=== PATIENT | male | born 1970 | race Caucasian/White ===

== ENCOUNTER 2021-06-16 11:50 | Day surgery (SDC) | payer OTHER ==
[~2021-06-16 11:50] MED LIST: LACTATED RINGERS 1,000 ML IV SCH
[2021-06-16 12:16] VITALS: TEMP 97.8
--- NOTE | 2021-06-16 12:47 | P.GSHP ---
History of Present Illness H&P Date: 06/16/21 Chief Complaint: Screening colonoscopy This is a 50-year-old male presents today for screening colonoscopy. Patient denies a significant GI complaints. He states he may have some hemorrhoids. Past Medical History Past Medical History: Osteoarthritis (OA) History of Any Multi-Drug Resistant Organisms: None Reported Past Surgical History: Tonsillectomy Additional Past Surgical History / Comment(s): COLONOSCOPY. WISDOM Past Anesthesia/Blood Transfusion Reactions: No Reported Reaction Past Psychological History: No Psychological Hx Reported Smoking Status: Current every day smoker Past Alcohol Use History: Occasional Additional Past Alcohol Use History / Comment(s): SMOKES CIGAR, 2 A DAY. Past Drug Use History: Marijuana Medications and Allergies Home Medications Medication Instructions Recorded Confirmed Type Naproxen Sodium [Aleve] 220 - 440 mg PO Q6H PRN 06/12/21 06/16/21 History Allergies Allergy/AdvReac Type Severity Reaction Status Date / Time No Known Allergies Allergy Verified 06/12/21 13:49 Surgical - Exam Vital Signs Temp Pulse Resp BP Pulse Ox 97.8 F 52 L 20 138/78 99 06/16/21 12:11 06/16/21 12:11 06/16/21 12:11 06/16/21 12:11 06/16/21 12:11 - General well developed, well nourished, no distress - Eyes PERRL - ENT normal pinna - Neck no masses - Respiratory normal expansion - Cardiovascular Rhythm: regular - Abdomen Abdomen: soft, non tender Assessment and Plan Assessment: We'll perform screening colonoscopy.
--- NOTE | 2021-06-16 13:01 | P.OP ---
Date of Procedure: 06/16/21 Preoperative Diagnosis: Screening colonoscopy Postoperative Diagnosis: Internal and external hemorrhoids Procedure(s) Performed: Colonoscopy Anesthesia: MAC Surgeon: Kalyan Ross Pathology: none sent Condition: stable Disposition: PACU Description of Procedure: Patient's placed on the endoscopy table in the lateral position. He received IV sedation. Digital rectal exam was performed. This revealed internal/external hemorrhoids. Flexible colonoscope was then placed patient anus passed throughout the entire colon. The ileocecal valve was visualized. Cecum, ascending and transverse colon appeared normal. The descending and sigmoid colon appeared normal. Scope was then brought back the rectum and this appeared normal. Scope withdrawn for patient. Internal and external hemorrhoids are noted. Scope was withdrawn from patient.
[2021-06-16 13:12] VITALS: RESP 16
[2021-06-16 13:23] VITALS: BP 123/70; PULSE 50
== END 2021-06-16 13:45 | disposition home or self-care (01) ==
LOC: ORWHC2ENDO 11:50
PROVIDERS: ATTEND Surgery
DX: Z12.11 Encounter for screening for malignant neoplasm of colon (principal); K64.4 Residual hemorrhoidal skin tags; K64.8 Other hemorrhoids; M19.90 Unspecified osteoarthritis, unspecified site; F17.210 Nicotine dependence, cigarettes, uncomplicated
CPT/HCPCS: 45378